=== PATIENT | female | born 1990 | race Caucasian/White ===

== ENCOUNTER 2018-12-02 09:39 | Emergency (ER) | payer BC ==
[~2018-12-02] VITALS: Ht 160 cm; Wt 52.2 kg
[~2018-12-02 09:39] MED LIST: ACETAMINOPHEN-1 EAC1 PO; AZITHROMYCIN 2250 MG PO; BACTRIM DS TAB1 EACH PO; FLEXERIL PO; HYDROCODONE-AP1 EAC6 PO; IBUPROFEN 800800 M1 PO; LORTAB 5 MG/5001 TA1 PO; MEDROXYPROGESTERONE; NAPROSYN375 MG PO; NOHOMEMEDICATIONS; NORCO 5-325 TA1 EACH PO; PHENERGAN 25 MG25 M1 PO; PREDNISONE 10 M10 M1 PO; PRENATAL; TRAMADOL 50 MG50 MG PO; VICODIN 5-5001 EACH PO; ZPAK PO
[2018-12-02 10:40] LABS: ABSOLUTE EOSINOPHILS 0.2 thou/uL (0.0-0.7); ABSOLUTE LYMPHOCYTES 1.6 thou/uL (0.8-5.3); HEMOGLOBIN 14.9 gm/dL (12.0-15.0); LYMPHOCYTES 32.3 %; NUCLEATED RBCS 0 /100WBC; PLATELET COUNT* 231 thou/uL (150-400)
[2018-12-02 10:41] LABS: ABSOLUTE MONOCYTES 0.5 thou/uL (0.0-1.2); ABSOLUTE NEUTROPHILS 2.7 thou/uL (1.6-8.1); BASOPHILS 0.8 %; EOSINOPHILS 3.4 %; HEMATOCRIT 43.6 % (37.0-47.0); MCH 30.1 pg (26.0-34.0); MCHC 34.3 g/dL (28.0-37.0); MONOCYTES 9.3 %; MPV 8.8 fl. (7.2-11.1); POLYS 54.2 %; RBC 4.96 mil/uL (4.20-5.00); RDW-CV 12.5 % (10.5-14.5)
[2018-12-02 11:05] LABS: ANION GAP 9 mmol/L (7-16); BUN 7 mg/dL (7-18); CALCIUM 9.1 mg/dL (8.5-10.1); CHLORIDE 103 mmol/L (98-107); CO2 28 mmol/L (21-32); CREATININE 0.7 mg/dL (0.6-1.3); GLUCOSE 88 mg/dL (70-99); POTASSIUM 3.9 mmol/L (3.5-5.1); SODIUM 140 mmol/L (136-145)
[2018-12-02 11:10] LABS: ALKALINE PHOSPHATASE 63 U/L (46-116); LIPASE 87 U/L (73-393); MAGNESIUM 2.1 mg/dL (1.8-2.4); SGOT 14 U/L (15-37); SGPT 21 U/L (30-65); TOTAL BILIRUBIN 0.7 mg/dL (<0.1-1.0); TOTAL PROTEIN 7.4 g/dL (6.4-8.2); TROPONIN-I LEVEL <0.06 ng/mL (<0.06)
--- NOTE | 2018-12-02 12:25 | EKG ---
[place] [address] ELECTROCARDIOGRAM REPORT Name: ROSITA VALDIVIA Room: [facility]#: [id number] Admission: 12/02/18 Attend Phys: Discharge: Date of : 88 Report #: [id number] THIS REPORT FOR: //name// [facility] ED Test Date: 2018-12-02 Test Time: 10:06:06 Pat Name: ROSITA VALDIVIA Department: Room: Gender: F [employer] E[employer]: : 1990 Requested By: Elvis Diaz Order Number: [id number] MD: Martinez Hendrickson Measurements Intervals [place] Rate: 67 P: 51 MN: 106 QRS: 76 QRSD: 81 T: 67 QT: 397 QTc: 419 Interpretive Statements Sinus rhythm Short [place] interval No previous ECG available for comparison Electronically Signed On 12-02-2018 12:25:21 CDT by Martinez Hendrickson [email or web address] <ELECTRONICALLY SIGNED> By: Martinez Hendrickson MD, [facility] 12/02/18 1225 1006 1006 Martinez Hendrickson MD, FACC /EPI
[2018-12-02] MEDS ORDERED: PREDNISONE50 MG PO (13:21)
[2018-12-02] MEDS ORDERED: NORCO 5-325 TA1 EAC1 PO (13:21)
[2018-12-02 13:39] VITALS: BP 95/47
--- NOTE | 2018-12-04 14:49 | EKG ---
[place] [address] ELECTROCARDIOGRAM REPORT Name: ANNALEEARVINDROSITAValerie SANDERSCA Room: [facility]#: [id number] Admission: 12/02/18 Attend Phys: Discharge: 12/02/18 Date of : [birth year] Report #: [id number] THIS REPORT FOR: //name// [facility] ED Test Date: 2018-12-02 Test Time: 11:53:18 Pat Name: ROSITA VALDIVIA Department: Room: Gender: F Managing Consultant: KING : 1990 Requested By: Elvis Diaz Order Number: [id number] MD: Yovani Mars Measurements Intervals [place] Rate: 58 P: 46 IA: 108 QRS: 72 QRSD: 86 T: 63 QT: 416 QTc: 409 Interpretive Statements Sinus rhythm Short [place] interval Compared to ECG 12/02/2018 10:06:06 No significant changes Electronically Signed On 12-04-2018 14:49:10 CDT by Yovani Mars [email or web address] <ELECTRONICALLY SIGNED> By: Yovani Mars MD, [facility] 12/04/18 1449 1153 1153 Yovani Mars MD, FACC /EPI
== END 2018-12-02 13:39 | disposition home or self-care (01) ==
LOC: M.ERS 09:39
PROVIDERS: Emergency Medicine Emergency Medical Services
DX: R07.89 Other chest pain (principal); M54.10 Radiculopathy, site unspecified; F17.210 Nicotine dependence, cigarettes, uncomplicated; Z98.51 Tubal ligation status

== ENCOUNTER 2019-06-09 16:44 | Emergency (ER) | payer OTHER ==
[~2019-06-09] VITALS: Ht 160 cm; Wt 52.2 kg
[~2019-06-09 16:44] MED LIST changes: +NORCO 5-325 TA1 EAC1 PO; +PREDNISONE50 MG PO
[2019-06-09 18:02] LABS: ABSOLUTE BASOPHILS 0.1 thou/uL (0.0-0.2); ABSOLUTE EOSINOPHILS 0.2 thou/uL (0.0-0.7); ABSOLUTE LYMPHOCYTES 1.8 thou/uL (0.8-5.3); ABSOLUTE MONOCYTES 0.5 thou/uL (0.0-1.2); BASOPHILS 1.1 %; EOSINOPHILS 2.1 %; HEMATOCRIT 40.3 % (37.0-47.0); HEMOGLOBIN 13.9 gm/dL (12.0-15.0); MCH 30.2 pg (26.0-34.0); MCHC 34.5 g/dL (28.0-37.0); MCV 87.5 fL (80.0-100.0); MPV 8.5 fl. (7.2-11.1); NUCLEATED RBCS 0 /100WBC; PLATELET COUNT* 197 thou/uL (150-400); POLYS 69.8 %; RBC 4.61 mil/uL (4.20-5.00); RDW-CV 13.3 % (10.5-14.5); WBC 8.6 thou/uL (4.0-11.0)
[2019-06-09 18:20] LABS: CALCIUM 9.2 mg/dL (8.5-10.1); CREATININE 0.7 mg/dL (0.6-1.3); POTASSIUM 3.5 mmol/L (3.5-5.1)
[2019-06-09 18:24] LABS: ALBUMIN 3.8 g/dL (3.4-5.0); TOTAL BILIRUBIN 0.6 mg/dL (<0.1-1.0); TOTAL PROTEIN 7.2 g/dL (6.4-8.2)
[2019-06-09 19:19] LABS: INFLUENZA A ANTIGEN Negative (Negative); INFLUENZA B ANTIGEN Negative (Negative)
[2019-06-09 19:26] VITALS: BP 110/72
--- NOTE | 2019-06-10 10:32 | EKG ---
[place] [address] ELECTROCARDIOGRAM REPORT Name: ROSITA VALDIVIA Room: [facility]#: [id number] Admission: 06/09/19 Attend Phys: Discharge: 06/09/19 Date of : 88 Date of Service: 06/09/19 1650 Report #: [id number] THIS REPORT FOR: //name// [facility] ED Test Date: 2019-06-09 Test Time: 16:50:21 Pat Name: ROSITA VALDIVIA Department: Room: Gender: F Strategic Partnership Manager: ISAIAS : 1990 Requested By: Paty Jesus Order Number: [id number] MD: Martinez Hendrickson Measurements Intervals [employer] Rate: 76 P: 39 NV: 96 QRS: 72 QRSD: 93 T: 54 QT: 365 QTc: 411 Interpretive Statements Sinus rhythm Short [place] interval Borderline repolarization abnormality Compared to ECG 12/02/2018 11:53:18 no change Electronically Signed On 06-10-2019 10:31:00 CDT by Martinez Hendrickson [email or web address] <ELECTRONICALLY SIGNED> By: Martinez Hendrickson MD, [facility] 06/10/19 1031 1650 1650 Martinez Hendrickson MD, [facility] /EPI
== END 2019-06-09 19:26 | disposition home or self-care (01) ==
LOC: M.ERS 16:44
PROVIDERS: Physician Assistant
DX: R07.89 Other chest pain (principal); R42 Dizziness and giddiness; R53.1 Weakness; F17.210 Nicotine dependence, cigarettes, uncomplicated

== ENCOUNTER 2020-08-05 18:54 | Emergency (ER) | payer OTHER ==
[~2020-08-05] VITALS: Ht 160 cm; Wt 54.4 kg
[2020-08-05 19:55] LABS: ABSOLUTE BASOPHILS 0.1 thou/uL (0.0-0.2); ABSOLUTE EOSINOPHILS 0.2 thou/uL (0.0-0.7); ABSOLUTE LYMPHOCYTES 1.9 thou/uL (0.8-5.3); ABSOLUTE MONOCYTES 0.7 thou/uL (0.0-1.2); ABSOLUTE NEUTROPHILS 6.5 thou/uL (1.6-8.1); BASOPHILS 0.8 %; EOSINOPHILS 1.6 %; HEMATOCRIT 40.5 % (37.0-47.0); HEMOGLOBIN 13.8 gm/dL (12.0-15.0); LYMPHOCYTES 20.5 %; MCHC 34.1 g/dL (28.0-37.0); MCV 87.8 fL (80.0-100.0); MONOCYTES 7.3 %; MPV 8.8 fl. (7.2-11.1); NUCLEATED RBCS 0 /100WBC; PLATELET COUNT* 243 thou/uL (150-400); POLYS 69.8 %; RBC 4.61 mil/uL (4.20-5.00); RDW-CV 12.7 % (10.5-14.5); WBC 9.4 thou/uL (4.0-11.0)
[2020-08-05 19:57] LABS: URINE BILIRUBIN NEGATIVE (Negative); URINE BLOOD NEGATIVE (Negative); URINE CLARITY CLEAR; URINE COLOR YELLOW; URINE GLUCOSE-RANDOM NEGATIVE (Negative); URINE KETONES 1+ (Negative); URINE LEUKOCYTES-REFLEX NEGATIVE (Negative); URINE NITRITE-REFLEX NEGATIVE (Negative); URINE PROTEIN NEGATIVE (Negative); URINE UROBILINOGEN 0.2 E.U./dl (0.2-1.0)
[2020-08-05 20:02] LABS: AMP/METHAMP Negative (Negative); BARBITURATES Negative (Negative); BENZODIAZEPINES Negative (Negative); COCAINE Negative (Negative); METHADONE Negative (Negative); OPIATES Negative (Negative); PCP Negative (Negative); THC Negative (Negative)
[2020-08-05 20:11] LABS: CALCIUM 9.8 mg/dL (8.5-10.1); CREATININE 0.7 mg/dL (0.6-1.3); POTASSIUM 3.4 mmol/L (3.5-5.1)
[2020-08-05 20:15] LABS: ALBUMIN 4.5 g/dL (3.4-5.0); TOTAL BILIRUBIN 0.5 mg/dL (<0.1-1.0); TOTAL PROTEIN 8.2 g/dL (6.4-8.2)
[2020-08-05 21:03] LABS: PROTIME 10.3 Seconds (9.20-11.50)
[2020-08-05] MEDS ORDERED: NORFLEX100 MG PO (22:08)
[2020-08-05] MEDS ORDERED: TORADOL 10 MG T10 MG PO (22:08)
[2020-08-05 22:20] VITALS: BP 91/47
== END 2020-08-05 22:20 | disposition home or self-care (01) ==
LOC: M.ERS 18:54
PROVIDERS: Personal Emergency Response Attendant
DX: M54.2 Cervicalgia (principal); F41.9 Anxiety disorder, unspecified; M79.18 Myalgia, other site; R42 Dizziness and giddiness; F17.210 Nicotine dependence, cigarettes, uncomplicated

== ENCOUNTER 2021-03-18 07:51 | Emergency (ER) | payer OTHER ==
[~2021-03-18] VITALS: Ht 160 cm; Wt 53.1 kg
[~2021-03-18 07:51] MED LIST changes: +NORFLEX100 MG PO; +TORADOL 10 MG T10 MG PO
[2021-03-18 08:01] VITALS: BP 104/60
== END 2021-03-18 10:30 | disposition left against medical advice (07) ==
LOC: M.ERS 07:51
DX: R10.9 Unspecified abdominal pain (principal); Z53.21 Procedure and treatment not carried out due to patient leaving prior to being seen by health care provider